=== PATIENT | male | born 2000 | race Caucasian/White ===

== ENCOUNTER 2020-09-08 18:17 | Emergency (ER) | payer SELFPAY ==
[2020-09-08 18:30] VITALS: BP 105/61; PULSE 88; TEMP 101; BMI 24.7
[2020-09-08] MEDS ORDERED: ACETAMINOPHEN 500 MG TABLET (FP) PO ONE (18:58)
[2020-09-08] MEDS ORDERED: ACETAMINOPHEN 325 MG TABLET (FP) ONE (19:05)
[2020-09-09 15:20] LABS: SARS-CoV-2 NAA Not Detected (Not Detected)
== END 2020-09-08 19:17 | disposition home or self-care (01) ==
LOC: FER 18:17
DX: R05 Cough (principal); R07.89 Other chest pain; Z11.52 Encounter for screening for COVID-19
CPT/HCPCS: 71046-TC-FY; 93005; 99285-25; C9803; U0003; U0005